=== PATIENT | male | born 1960 | race Caucasian/White ===

== ENCOUNTER 2019-07-28 12:19 | Emergency (ER) | payer OTHER ==
[~2019-07-28] VITALS: Ht 177.8 cm; Wt 79.4 kg
[2019-07-28] MEDS ORDERED: NOHOMEMEDICATIONS (12:28)
[2019-07-28] MEDS ORDERED: MOBIC15 MG PO (13:26)
[2019-07-28 13:46] VITALS: BP 115/81
== END 2019-07-28 13:46 | disposition home or self-care (01) ==
LOC: M.ERS 12:19
DX: M25.461 Effusion, right knee (principal)